=== PATIENT | male | born 1955 | race Hispanic/Latino ===

== ENCOUNTER 2018-03-15 07:27 | Day surgery (SDC) | payer BC ==
[2018-03-10 08:44] VITALS: BMI 21.1
[2018-03-15 08:19] LABS: BASO # 0.04 K/mm3 (0.0-2.0); BASO % 0.4 % (0.0-3.0); EOS # 0.3 (0.0-0.7); EOS % 2.7 % (1.5-5.0); GRAN % 71.1 % (50.0-68.0); HEMOGLOBIN 13.2 g/dL (14.0-18.0); LYMPH # 1.8 (1.2-3.4); LYMPH % 15.8 % (22.0-35.0); MEAN CELL VOLUME 95.4 fl (80.0-105.0); MEAN CORPUSCULAR HEMOGLOBIN 32.1 pg (25.0-35.0); MEAN CORPUSCULAR HGB CONC 33.7 g/dl (31.0-37.0); MEAN PLATELET VOLUME 8.5 fl (7.0-11.0); MONO # 1.1 (0.1-0.6); RBC 4.11 10^6/uL (3.5-6.1); RED CELL DISTRIBUTION WIDTH 13.6 % (11.5-14.5); WHITE BLOOD COUNT 11.2 10^3/ul (4.5-11.0)
[2018-03-15 08:26] LABS: INR 0.97; PARTIAL THROMBOPLASTIN TIME 33.9 Seconds (25.1-36.5); PROTHROMBIN TIME 11.2 SECONDS (9.4-12.5)
[2018-03-15 08:31] LABS: BLOOD UREA NITROGEN 18 mg/dL (7-21); GFR NON-AFRICAN AMERICAN > 60; HDL CHOLESTEROL 51 mg/dL (29-60)
[2018-03-15 08:42] LABS: LDL CHOLESTEROL 98 mg/dL (0-129)
[2018-03-15] MEDS ORDERED: Midazolam 2 MG/2 ML VIAL ONE ×2 (10:01→10:32)
[2018-03-15] MEDS ORDERED: Iodixanol 320 MG/ML 200 ML BOTTLE IV ONE (10:01)
[2018-03-15] MEDS ORDERED: Heparin 2,000 ML IV ONE (10:01)
[2018-03-15] MEDS ORDERED: Eptifibatide 20 mg/10mL Inj IVP ONE (10:52)
[2018-03-15] MEDS ORDERED: Sodium Chloride 0.9% 1,000 ML IV SCH (11:15)
--- NOTE | 2018-03-15 12:42 | CARD ---
APPROVED REPORT Date of service: 03/15/2018 EKG Measurement Heart [id number] VA [id number] [id number] <Conclusion> Normal sinus rhythm Normal ECG
--- NOTE | 2018-03-15 12:44 | CARD ---
APPROVED REPORT Date of service: 03/15/2018 EKG Measurement Heart [id number] [place] [id number] [id number] <Conclusion> Normal sinus rhythm Moderate voltage criteria for LVH, may be normal variant Cannot rule out Septal infarct, age undetermined Abnormal ECG
[2018-03-15] MEDS ORDERED: Bacitracin 500 Units/gm Oint Foilpak UD ONE (13:37)
[2018-03-15] MEDS: Levalbuterol 1.25 MG/3 ML Inhal Soln UD IH SCH ×2 (13:43→20:09)
--- NOTE | 2018-03-15 14:38 | CARDCATH ---
PROCEDURE DATE: 03/15/2018 CARDIAC CATHETERIZATION AND PTCA HISTORY: The patient is a 62-year-old male who presents with exertional angina and shortness of breath. He suffers from severe COPD from years of multiple packs of smoking per day. A stress test showed ischemic changes. Because of this, cardiac catheterization was recommended. PROCEDURE: Left heart catheterization with coronary arteriography and left ventriculogram followed by PTCA and stent of the mid LAD lesion. The right femoral artery was cannulated with a 6-[place] sheath. There were no complications. I performed moderate sedation which included the presence of an independent trained observer that assisted in monitoring the patient's level of consciousness and physiologic status. After administration of fentanyl and Versed, my intra-service time was 30 minutes. The findings on catheterization revealed left dominant circulation. His coronary anatomy revealed an RCA that was a small vessel with diffuse intimal irregularities without significant stenosis. The left main artery was unremarkable. The circumflex artery and obtuse marginal branches were free of significant disease. The LAD revealed a 90% stenosis in the midportion with intimal irregularities throughout the rest of the vessel. The patient was started on intravenous Angiomax and given one dose of IV Integrilin. Under fluoroscopic guide, the guiding catheter was placed in the ostium of the left main artery. An 0.014 ATW wire was used to cross the critical lesion. A 2.5 x 12 mm drug-eluting stent was placed and deployed in the mid LAD lesion at 14 atmospheres of pressure. After balloon deflation and removal, repeat coronary arteriography revealed an excellent result with no residual stenosis and JERI III flow. The patient tolerated the procedure well. AngioSeal could not be placed because of severe peripheral vascular disease. In summary, the procedure was successful of PTCA and stent of a 90% stenosis in the mid LAD with a drug-eluting stent. Cardiac catheterization reveals good LV function and single-vessel CAD of the LAD. Given these findings, the patient will need to remain on aspirin indefinitely and Plavix for at least a year and undergo a strict cardiac risk reduction program, which he needs include cessation of smoking. I have discussed this with the patient and in detail. Sergio Best MD [facility] # [id number]
[2018-03-15] MEDS: POLYETHYLENE GLYCOL 3350 17 GM/Dose PACKET PO SCH (18:42)
[2018-03-15] MEDS ORDERED: Ergocalciferol 50,000 Intl Units Cap PO SCH (20:00)
[2018-03-16] MEDS: Levalbuterol 0.63 MG/3 ML Inhal Soln UD IH SCH ×3 (01:25→13:23)
[2018-03-16] MEDS ORDERED: Levalbuterol 0.63 MG/3 ML Inhal Soln UD ONE (01:39)
--- NOTE | 2018-03-16 02:58 | HP ---
HISTORY OF PRESENT ILLNESS: The patient is a 62-year-old male who is admitted post angioplasty and cardiac catheterization by Dr. Sergio Best to under Dr. Guthrie's service. The patient is a 62-year-old male who recently underwent stress test in 02/2018. The patient was found to have abnormal stress test. The patient had abnormal stress test for which the patient was referred for cardiac catheterization. CODE STATUS: Full code. LIVING WILL ADVANCE DIRECTIVE: None. ALLERGIES: MUSCLES. HEIGHT: 5 feet 10 inches. WEIGHT: 147. BMI: 21.1. LOCATION: The patient was seen and examined in room 274, bed 2. Patient is seen lying in the stretcher. PAST MEDICAL AND SURGICAL HISTORY: History of coronary artery disease, history of coronary angioplasty, history of hypertension, history of nicotine dependence, history of questionable syncope, vasovagal syncope, history of hyperlipidemia, history of hypovitaminosis D, history of emphysema with apical bullous changes and pleural parenchymal thickening and with parabronchial wall thickening, history of possible chronic esophagitis with diffuse esophageal wall thickening, history of active nicotine addiction, history of fall. Past medical history is also significant for hypertensive cardiovascular disease with left ventricle hypertrophy. The patient's past medical history is significant for some kind of orthopedic surgery. OCCUPATIONAL HISTORY: The patient is not working. Not employed. SOCIAL HISTORY: Positive for active smoking one pack a day for more than 45 years. The patient denies alcohol or drug use. FAMILY HISTORY: Not available. PHYSICAL EXAMINATION: GENERAL: The patient is seen lying in the stretcher, in 274. Patient is comfortable. VITAL SIGNS: T-max 97.9. Telemetry shows sinus rhythm; heart rate in 76, 78, 74; blood pressure 139/85; respiration 18; O2 sat 99% on room air. HEENT: Head examination, normocephalic and atraumatic. HEENT examination shows pink conjunctivae. Dry oral mucosa. No neck rigidity. CHEST: Kyphosis. LUNGS: Examination shows occasional rhonchi upper lung arthur. CARDIOVASCULAR: S1, S2, regular rhythm. ABDOMEN: Soft. Positive bowel sounds. GENITALIA: Male. EXTREMITIES: Positive right groin dressing and sheath noted of the angioplasty and cardiac catheterization. Shows positive palpable pulses of the right femoral, right popliteal, right dorsalis pedis and posterior tibial pulses. No pitting edema, no calf tenderness, no Homans' sign. NEUROLOGIC: The patient is alert, awake, oriented x3. Cranial nerves II-XII limited. Gait examination not tested as the patient is lying in bed. MUSCULOSKELETAL: Examination shows a body mass index of 21. DIAGNOSTICS: WBC 11.2, hemoglobin/hematocrit 13.2/39.2, platelet 397. Granulocytes 71% segs. PT/PTT 11.2/33.9. Sodium 139, potassium 4.5, chloride 106, CO2 28, anion gap 9, BUN 18, creatinine 0.9, GFR greater than 60, glucose 97, cholesterol 172, LDL 98, HDL 51. The patient underwent cardiac catheterization today by Dr. Sergio Best and angioplasty by Dr. Sergio Best, which was reviewed. IMPRESSION AND PLAN: 1. Unstable angina. 2. Advanced chronic obstructive pulmonary disease with active nicotine addiction. 3. Status post cardiac catheterization and angioplasty and stent placement of the mid left anterior descending artery. 4. 90% stenosis of the mid left anterior descending artery. 5. Status post angioplasty and drug-eluting stent placement of the mid left anterior descending artery with successful angioplasty and stent placement of the 90% stenosis of the mid left anterior descending artery with a drug-eluting stent. 6. Single-vessel coronary artery disease. 7. Active nicotine addiction. 8. History of hypertension. 9. History of hyperlipidemia. 10. Granulocytosis. 11. Mild anemia. 12. History of hypovitaminosis D. PLAN: At this time, the patient is admitted by Dr. Sergio Best to telemetry. Post cardiac catheterization, repeat CBC, CMP ordered for the morning. Current medications; Colace 100 mg three times a day, aspirin 81 mg daily, Lipitor 40 mg daily, MiraLax 17 g twice a day, nicotine patch 14 mg daily, Plavix 75 mg daily, Protonix 40 mg daily, Xopenex nebulizer 0.63 mg every 6 hours, Zofran 4 mg IV every 4 p.r.n., Tylenol p.r.n. Oxygen 2 liters ordered. Repeat EKG was ordered by Dr. Sergio Best. The patient is on bed rest post cardiac catheterization with routine postop monitoring post cardiac catheterization, post angioplasty monitoring which was ordered. At present, the patient is admitted to telemetry. The patient's further management will be dependent upon the patient's clinical condition, hemodynamic status and as per the patient's response to therapeutic intervention, as per the patient's diagnostic test results and as per recommendation by all the physicians involved in the care of the patient. The patient counseled about cessation of smoking, which she acknowledged understood. All questions concerned answered. Dictated and electronically signed, not read. Sohail Guthrie MD
[2018-03-16] MEDS ORDERED: Pantoprazole 40 mg EC Tab PO SCH (06:00)
[2018-03-16 06:08] VITALS: O2SAT 97
[2018-03-16 07:17] LABS: BASO # 0.03 K/mm3 (0.0-2.0); BASO % 0.3 % (0.0-3.0); EOS # 0.2 (0.0-0.7); EOS % 1.7 % (1.5-5.0); GRAN # 6.92 (1.4-6.5); GRAN % 68.6 % (50.0-68.0); HEMOGLOBIN 12.6 g/dL (14.0-18.0); LYMPH # 1.8 (1.2-3.4); LYMPH % 17.9 % (22.0-35.0); MEAN CELL VOLUME 94.7 fl (80.0-105.0); MEAN CORPUSCULAR HEMOGLOBIN 31.7 pg (25.0-35.0); MEAN CORPUSCULAR HGB CONC 33.4 g/dl (31.0-37.0); MEAN PLATELET VOLUME 8.7 fl (7.0-11.0); MONO # 1.2 (0.1-0.6); MONO % 11.5 % (1.0-6.0); RBC 3.98 10^6/uL (3.5-6.1); RED CELL DISTRIBUTION WIDTH 13.4 % (11.5-14.5); WHITE BLOOD COUNT 10.1 10^3/ul (4.5-11.0)
[2018-03-16 07:35] LABS: BLOOD UREA NITROGEN 14 mg/dL (7-21); CALCIUM 9.1 mg/dL (8.4-10.5); GFR NON-AFRICAN AMERICAN > 60
--- NOTE | 2018-03-16 08:14 | PN ---
DATE: 03/16/2018 CARDIOLOGY FOLLOWUP SUBJECTIVE: The patient is without chest pain. He is ambulating without symptoms. PHYSICAL EXAMINATION: VITAL SIGNS: Blood pressure is 118/77, the heart rate is in the 80s. NECK: Negative JVD. LUNGS: Without rales. HEART: Reveals S1, S2. EXTREMITIES: Without edema. LABORATORY DATA: Hemoglobin is 12.6. His BUN and creatinine are unremarkable. IMPRESSION: 1. Status post percutaneous transluminal coronary angioplasty and stent of a 90% left anterior descending stenosis. 2. Chronic obstructive pulmonary disease. 3. Coronary artery disease. 4. Hypercholesterolemia. 5. Peripheral vascular disease. PLAN: Given these findings, the patient is stable for discharge. The patient will go home on aspirin, Plavix, Lipitor. I have discussed with the patient about the need to stop smoking and he understands. From a cardiac perspective, the patient can be discharged. He will be following up with Dr. Willis, his pharmacovigilance safety expert in [place]. Sergio Best MD
[2018-03-16] MEDS: POLYETHYLENE GLYCOL 3350 17 GM/Dose PACKET PO SCH (09:59)
--- NOTE | 2018-03-16 11:16 | CARD ---
APPROVED REPORT Date of service: 03/16/2018 EKG Measurement Heart [id number] [place] [id number] [id number] <Conclusion> Normal sinus rhythm Normal ECG
[2018-03-16 12:23] VITALS: BP 121/81; PULSE 77; RESP 20; TEMP 97.7
--- NOTE | 2018-03-17 04:41 | DS ---
FINAL PROGRESS NOTE AND DISCHARGE SUMMARY HISTORY OF PRESENT ILLNESS: The patient was seen in room 274, bed 2. The patient is out of bed to chair. The patient is alert, awake, responsive. The patient's overnight nurse's notes were reviewed. The patient's right groin examination was within normal limits without any hematoma or bleeding noted. PHYSICAL EXAMINATION: VITAL SIGNS: T-max 97.9. Telemetry shows sinus rhythm; heart rate 72, 77, 87; blood pressure 121/81, 118/77, 188/76; respiration 18 to 20; O2 sat 97%. HEENT: Head: Examination normocephalic, atraumatic. HEENT examination shows pink conjunctivae. Anicteric sclerae. No oropharyngeal lesion. No neck rigidity. CHEST: Symmetrical. LUNGS: Examination shows occasional rhonchi at upper lung arthur. CARDIOVASCULAR: S1, S2, regular rhythm. ABDOMEN: Soft. Positive bowel sound. GENITALIA: Male. RECTAL: Examination is deferred. EXTREMITIES: Right groin dressing is intact without any hematoma. Positive pulses noted of the right lower extremity. MUSCULOSKELETAL: Examination shows a body mass index of 21. NEUROLOGIC: The patient is alert, awake, oriented x3. Cranial nerves II-XII intact. Gait examination is independent. VASCULAR: Palpable pulses. Plantars are downward. DTRs at 2+. PSYCHIATRIC: Examination is negative. DIAGNOSTICS: From 03/16, WBC 10.1, hemoglobin/hematocrit 12.6/37.7, platelets 366. Sodium 138, potassium 4.3, chloride 107, CO2 of 26, anion gap 10, BUN 14, creatinine 0.8, GFR greater than 60, glucose 93. The patient seen by Cardiology, Dr. Sergio Best. The patient was cleared for discharge. FINAL IMPRESSION, PLAN AND DISCHARGE DIAGNOSES: 1. Coronary artery disease. 2. Status post cardiac catheterization, coronary arteriogram and coronary angioplasty and stent placement of the mid left anterior descending lesion. 3. 90% stenosis of the midportion of the left anterior descending. 4. Diffuse intimal irregularities of the right coronary artery. 5. Status post successful angioplasty and drug-eluting stent placement of the 90% stenosis of the mid left anterior descending artery. 6. Single-vessel coronary artery disease. 7. Abnormal cardiac imaging studies and stress test. 8. Mild normocytic anemia. 9. Granulocytosis. 10. Hyperlipidemia. 11. Hypovitaminosis D. 12. Hypertension. 13. Active nicotine addiction and dependence. 14. Left ventricular hypertrophy. 15. Emphysema. Plan at this time, the patient has been cleared for discharge by Cardiology. Discharge followup with Dr. Villa Hamilton and Dr. Willis, the incident response lead. DISCHARGE MEDICATIONS: Aspirin 81 mg daily indefinitely, Lipitor 40 mg daily, Plavix 75 mg daily for 1 year, Drisdol 50,000 weekly, Zestril 10 mg daily, nicotine patch 14 mg daily and Protonix 40 mg daily. The patient is discharged home with discharge followup with incident response lead and primary care physician. Time spent in the entire discharge process more than 45 minutes. Dictated and electronically signed, not read. Sohail Guthrie MD
== END 2018-03-16 14:10 | disposition home or self-care (01) ==
LOC: CATH 07:27 → 2RSO 11:25 → CATH 03-16 14:10
PROVIDERS: ATTEND Internal Medicine Cardiovascular Disease
DX: I25.110 Atherosclerotic heart disease of native coronary artery with unstable angina pectoris (principal); I73.9 Peripheral vascular disease, unspecified; F17.210 Nicotine dependence, cigarettes, uncomplicated; J44.9 Chronic obstructive pulmonary disease, unspecified; I11.9 Hypertensive heart disease without heart failure; E78.00 Pure hypercholesterolemia, unspecified; E78.5 Hyperlipidemia, unspecified; E55.9 Vitamin D deficiency, unspecified; D64.9 Anemia, unspecified
CPT/HCPCS: 36415 ×2; 80048 ×2; 80061; 85025 ×2; 85610; 85730; 86850; 86900; 93005 ×2; 93458; 94640 ×2; 99152; 99153; C1769 ×2; C1874; C1887; C2629; C9600; J0583; J1327; J1644; J2250; J3010; J7030; J7040; Q9966